=== PATIENT | female | born 1960 | race Caucasian/White ===

== ENCOUNTER 2018-12-24 15:01 | Outpatient (REF) | payer OTHER, SELFPAY ==
--- NOTE | 2018-12-24 14:40 | PAPFT_PTH ---
PATIENT: Rody Kebede LOC: [facility] U#:[id number] AGE/SX: 58/F ROOM: RE12/24/[address]: Delvis Galindo DO : 1960 BED: DIS: 12/24/2018 SPEC #: [id number] RECD: 12/24/18 18:07 STATUS: JOSE MARIA REDwayne #: [id number] JALEESA: 12/24/18 14:[address]: Delvis Galindo DEPT: [facility] Cytology RECD BY: Sindhu Brown Tissues: 1 - CX/ENDOCX FOR PAP SMEARS Procedures: PAP THIN PREP/UVM Screening HPV DNA PROBE Comments: [id number]
== END 2018-12-24 15:21 ==
LOC: LBN 15:01
PROVIDERS: PCP Emergency Medicine; Visit Provider Emergency Medicine
DX: Z12.4 Encounter for screening for malignant neoplasm of cervix (principal); Z11.51 Encounter for screening for human papillomavirus (HPV)
CPT/HCPCS: 88142; 87624

== ENCOUNTER 2018-12-24 15:11 | Outpatient (CLI) | payer OTHER, SELFPAY ==
[2018-12-24 18:00] LABS: Cholesterol 226 mg/dL (50-200); HDL Cholesterol 103 mg/dL (40-60); LDL CHOLESTEROL 104 mg/dL (<100); Triglyceride 71 mg/dL (30-150)
== END 2018-12-24 15:31 ==
PROVIDERS: PCP Emergency Medicine; Visit Provider Emergency Medicine
DX: Z00.00 Encounter for general adult medical examination without abnormal findings (principal); Z13.220 Encounter for screening for lipoid disorders
CPT/HCPCS: 36415; 80061; 83721

== ENCOUNTER 2020-03-15 09:41 | Outpatient (CLI) | payer OTHER, SELFPAY ==
[2020-03-17 18:13] LABS: SARS-CoV-2 RNA Undetected (Undetected); SARS-CoV-2 Specimen Source Nasopharynx
== END 2020-03-15 10:01 ==
PROVIDERS: PCP Emergency Medicine; Visit Provider Emergency Medicine
DX: Z20.828 Contact with and (suspected) exposure to other viral communicable diseases (principal)
CPT/HCPCS: U0003

== ENCOUNTER 2020-12-28 02:20 | Outpatient (CLI) | payer OTHER, SELFPAY ==
--- NOTE | 2020-12-28 08:25 | DI.MAMMO_ITS ---
Exam(s) MAMMO SCREENING EXAM: MAMMO SCREENING CLINICAL HISTORY: screening,Z12.39. TECHNIQUE: Bilateral full field digital CC and MLO mammographic images were obtained with 3D tomosyn thesis and utilizing computer aided detection (CAD). COMPARISON: Available for comparison. 2016 and 2018 from [facility] FINDINGS: Masses/Architectural Distortion: None seen. Microcalcifications: No suspicious pleomorphic-type are seen. Skin Thickening/Nipple Retraction: None. Biopsy marker clip in the posterior upper outer quadrant of the left breast. IMPRESSION: 1. No significant interval change with no specific features of malignancy noted. 2. Unless there is more urgent need, annual screening mammography is recommended, as per [place] [employer] guidelines. BI-RADS Category 1-negative Breast Density - Category D - extremely dense Breast Density Category D: The mammogram demonstrates the patient's breast tissue is dense. Dense maría elena ast tissue is very common and is not abnormal but dense breast tissue can make it harder to find canc er on a mammogram. Also, dense breast tissue may increase their breast cancer risk. This information about the result of the mammogram report was provided to the patient to raise their awareness. Use th is report when you speak with the patient about their risks for breast cancer, which includes their f amily history. At that time, you may recommend for more screening tests (Ultrasound or MRI) as they m ight be useful based on their risk. A negative radiographic report should not delay biopsy if a dominant or clinically suspicious mass is present. Up to ten percent of cancers are not identified on mammography. A negative report may reinforce clinical impression. Adenosis and dense breasts may obscure an underlying neoplasm. False positive reports average 6 to 10%.
== END 2020-12-28 02:40 ==
PROVIDERS: PCP Emergency Medicine; Visit Provider Emergency Medicine
DX: Z12.31 Encounter for screening mammogram for malignant neoplasm of breast (principal)
CPT/HCPCS: 77063; 77067

== ENCOUNTER 2021-01-27 16:40 | Outpatient (REF) | payer OTHER, SELFPAY ==
[2021-01-27 16:53] LABS: Source Nasal/Nares
[2021-01-27 20:56] LABS: COVID-19 PCR Negative (Negative)
== END 2021-01-27 16:41 | disposition home or self-care (01) ==
LOC: LBN 16:40
PROVIDERS: PCP Emergency Medicine; Visit Provider Surgery
DX: Z20.822 Contact with and (suspected) exposure to COVID-19 (principal); Z01.818 Encounter for other preprocedural examination
CPT/HCPCS: 87635

== ENCOUNTER 2021-01-28 09:44 | Day surgery (SDC) | payer OTHER, SELFPAY ==
[2021-01-28] VITALS (8 sets, daily range): BP systolic 93–130; BP diastolic 45–81; PULSE 46–58; RESP 12–16; TEMP 35.9–36.6; O2SAT 100
--- NOTE | 2021-01-28 09:21 | W.ANESPRE ---
General Info Date of Service Date Performed: 01/28/21 Height: 5 ft 7 in Weight: 58.06 kg Body Mass Index (BMI): 20.0 Surgical Procedure: Operation Date: 01/28/21 11:10 Proposed Procedures Side Surgeon p Herniorrhaphy Inguinal Right Cathy Kan, Meds Allergies and Home Medications Allergies Allergy/AdvReac Type Severity Reaction Status Date / Time No Known Allergies Allergy Verified 01/28/21 10:07 Home Medication Medication Instructions Recorded calcium carbonate 600 mg PO DAILY 12/01/16 ergocalciferol (vitamin D2) 400 units PO DAILY tab-cap 12/01/16 betamethasone, augmented 2 gm TOPICAL DAILY PRN #1 tube 01/24/18 conjugated estrogens 0.625 mg/gram 1 applic VG twice weekly #30 gm 02/18/19 vaginal cream lactobacillus combination no.9 4 4,000 mmu cells PO DAILY 01/27/21 billion cell capsule magnesium 420 mg PO DAILY PRN 01/28/21 Current Visit Medications: Current Medications Generic Name Dose Route Start Last Admin Trade Name Maya PRN Reason Stop Dose Admin Ringer's Solution 1,000 mls @ 80 mls/hr 01/28/21 06:00 IV 02/27/21 23:59 INFUSION ASIA Cefazolin Sodium/Dextrose 2 gm in 50 mls @ 100 mls/hr 01/28/21 06:00 Ancef Duplex IVPB 02/27/21 23:59 PREOP ASIA IV Miscellaneous Supplies 1 each 01/28/21 06:00 Iv Access IV 02/27/21 23:59 DIRECTED ASIA Sodium Chloride 0 ml 01/28/21 06:00 Normal Saline Flush 10 Ml Syr IV 02/27/21 23:59 PRN PRN Sodium Chloride 0 ml 01/28/21 06:00 Normal Saline 10 Ml Vial IJ 02/27/21 23:59 DIRECTED PRN Sterile Water 0 ml 01/28/21 06:00 Water,Injection,Sterile 10 Ml Vial IJ 02/27/21 23:59 DIRECTED PRN PFSH Active Problems Active Problems: Problem Status Onset Code Encounter for screening laboratory testing for COVID-19 virus in asymptomatic patient Z20.822 Pain of right inguinal ring R10.31 Right inguinal hernia K40.90 Lichen sclerosus et atrophicus of the vulva N90.4 Rosacea L71.9 Toenail fungus 05/10/16 B35.1 Seborrheic keratosis L82.1 Osteopenia determined by x-ray 05/25/17 M85.80 Functional murmur R01.0 Folliculitis L73.9 External hemorrhoids K64.4 Dense breast R92.2 Breast calcification seen on mammogram R92.1 Arthralgia of hip M25.559 Medical History Medical History Lichen sclerosus et atrophicus of the vulva Right inguinal hernia Surgical History Surgical History section 1993 Tobacco Smoking/Tobacco Use Status: Never Passive smoking exposure: No Alcohol Alcohol Intake: current Alcohol intake frequency: a few times a week Substance Use Substance use type: other Details: Per pt. states she takes a canabis tinture at bedtime for sleep Vital Signs and Lab Results Lab Results Blood Type / Crossmatch: No Data to Display Complete Blood Count: No Data to Display Complete Metabolic Panel: No Data to Display Liver Function Panel: No Data to Display Coagulation Panel: No Data to Display Cardiac Panel: No Data to Display Arterial Blood Gas: No Data to Display Venous Blood Gas: No Data to Display Pancreas Panel: No Data to Display Thyroid Panel: No Data to Display Infectious Disease: Coronavirus (COVID-19)(PCR) Negative (Negative) 01/27/21 16:00 01/27/21 Coronavirus 2019 Source Nasal/nares 01/27/21 16:00 01/27/21 Blood Cultures: No Data to Display Toxicology Panel: No Data to Display Anesthesia Assessment and Plan Anesthesia History Personal History: No History of Anesthesia Complications Family History: No Family History of Anesthesia Complications Exercise Tolerance Exercise Tolerance: Metabolic Equivalents>4 Pertinent Negatives Pertinent Negatives: No Symptoms of GERD, No Major Cardiovascular Symptoms or Complaints, No Major Pulmonary Symptoms or Complaints and No History of CVA/TIA Cardiac & Pulmonary Exam Cardiac Exam: Normal S1/S2 Heart Sounds Pulmonary Exam: Clear Bilateral Breath Sounds Airway Exam Known Difficult Airway: No Mallampati Class: 3 Mouth Opening: Normal (> 3cm) Thyromental Distance: Greater than 3 cm Neck Range of Motion: Full ROM Neck Circumference: Normal Teeth Condition: Normal Dentition ASA Classification ASA Score: ASA 2 Emergency Case?: No NPO Status NPO Status: NPO Clears >2 hours, Solids >8 hours Anesthesia Plan Resuscitation Status: Full Code Anesthesia Technique: General Anesthesia Airway Planned: LMA Monitors Used: Standard Monitors
[2021-01-28] MEDS: Lactated Ringers 1,000 ML 80 ML IV (10:34)
[2021-01-28] MEDS: ceFAZolin 2 GM/50 ML BAG IVPB (11:39)
--- NOTE | 2021-01-28 12:14 | W.ANESNERVE ---
Nerve Block Single Injection Procedure Date and Time Date Performed: 01/28/21 Procedure Start: 11:44 Location Where Procedure Performed Procedure Location: Operating Room Procedure Stop: 11:50 Reason Performed: Postoperative Analgesia Requesting Provider: Cathy Kan Timeout Performed Timeout Performed: Yes Monitoring Used ECG, Blood Pressure, SpO2 and ETCO2 Sterility Sterility: Hand Hygiene, Surgical Cap, Surgical Mask, Sterile Gloves, Eye Protection and Chlorhexidine Sedation Given During Procedure Sedation Given (Indicate Dose Given): No Sedation given Patient Mental Status Patient Mental Status: Performed under general anesthesia Nerve Block 1st Nerve Block: Laterality: Right Block Type: TAP Unilateral Needle / Catheter Used: 120mm SonoPlex II Local Anesthetic Bolus (Indicate Dose Given): Bupivacaine 0.5% Dose:: 10 cc and Exparel Dose:: 10 cc Additives (Indicate Dose Given): None Ultrasound: Sterile probe cover and gel used Ultrasound Image Saved?: Yes Nerve Stimulator: Not Used Paresthesia: None Procedure Tolerated: No Complications and Patient tolerated well Procedure Outcome: Successful Performed By: Minna Cantu Supervised By: Delroy Taylor
[2021-01-28] MEDS: Bupivacaine LIPOSOME/PF 133 MG/10 ML VIAL IJ (12:16)
--- NOTE | 2021-01-28 12:26 | W.PM.DSUDISC ---
Discharge Plan Disposition Patient Disposition: HOME Condition: Good Discharge Details Reason For Visit: (R) femoral hernia Attending Provider: Cathy Kan Primary Care Provider: Delvis Galindo Home Meds and New Rx's Prescriptions: New tramadol [Ultram] 50 mg tablet 50 mg PO Q6H PRN (Reason: pain) Qty: 10 RF: 0 Continued Adult 50 Plus Probiotic 4 billion cell capsule 4,000 mmu cells PO DAILY RF: 0 ergocalciferol (vitamin D2) 400 UNIT tablet 400 units PO DAILY RF: 0 calcium carbonate 600 MG tablet 600 mg PO DAILY RF: 0 betamethasone, augmented 50 GM cream 2 gm Topical DAILY PRNQty: 1 RF: 11 Premarin 0.625 mg/gram cream 1 applic VG twice weekly Qty: 30 RF: 11 magnesium 200 mg Tablet 420 mg PO DAILY PRNRF: 0 Discharge Instructions Additional Instructions: Dr. Kan HERNIA REPAIR ? POSTOPERATIVE INSTRUCTIONS Patients who have this type of surgery can usually be expected to return to work within two weeks and have minimal amounts of discomfort. ? ACTIVITY: The day of surgery should be spent resting. However, you can be up for short periods of time, I.E., going to the bathroom or kitchen. Avoid lifting or straining. On the day following surgery, you can be up and about as desired. ? LIFTING: Restrict your lifting to no more than five (5) pounds for the first week following surgery. For the second week after surgery, don?t lift more than ten pounds. We will decide when you are done with restrictions and when you can return to work, at your follow-up appointment. No sexual activity for two weeks. ? DIET: There are no dietary restrictions following surgery. However, you may want to start with small amounts of liquids to avoid nausea the day of surgery. ? INCISION CARE: You will notice purple skin glue closing the incision. Do not peel this off- it will wear off on its own. After 24 hours you may shower. The dressing may be replaced for comfort, but is not necessary. An ice bag may be applied to the incision for 72 hours following surgery. ? SIGNS OF INFECTION: It is not unusual to have some black and blue discoloration of the skin around the incision, but also scrotum and penis. It will slowly disappear. If you have any increased redness, drainage, fever (above 100 degrees), please contact your doctor for an examination. ? DISCOMFORT: You may expect to have some mild discomfort at the incision sight. If severe pain develops you should contact your doctor for further instructions. ? URINATION: Patients who have surgery occasionally have problems urinating. If you experience problems and are not able to urinate within 6 hours following your surgery, please call your doctor immediately or go to your nearest Emergency Room for evaluation. ? DRIVING: NO driving for three (3) days after surgery, or if you are still taking narcotic pain medication. ? MEDICATIONS: Alternate Tylenol 1000mg by mouth every 8 hours and Ibuprofen 600mg every 6 hours. Make sure you take ibuprofen with food and not on an empty stomach. Take the Tylenol and ibuprofen continuously for the first 72hrs- not just when you have pain. Use the tramadol for breakthrough pain. Use ICE! Twenty minutes on, and then off, continuously for the first 72hours. If you are taking narcotic pain medication, follow the instructions on the label and do not drive. Pain medications can make you very constipated. Make sure you are moving your bowels daily. If not, take Miralax, milk of magnesia or magnesium citrate. Anesthesia makes you very constipated. Take a dose of milk of magnesia the morning after surgery. ? REPORT: Unusual swelling, severe pain, unresolved nausea, signs of infection, or difficulty in urination to your surgeon. Follow up in clinic with Dr. Kan February 11 at 10:30am w/ [facility] office: [phone] Activity:: see above Remove Dressings/Wound Care:: 24 hours Shower/Bathe:: 24 hours Diet:: small light meals x 24 hrs Discharge Orders Discharge Orders: Discharge Order (Routine); Ordered 01/28/21 Ordered By: Cathy Kan DS: Diagnosis Discharge Diagnosis (1) Femoral hernia of right side: Status: Acute
--- NOTE | 2021-01-28 12:53 | W.ANESPOSTOP ---
Postoperative Evaluation Date, Time and Location Date Performed: 01/28/21 Time Performed: 12:54 Patient Location: PACU Vital Signs Most Recent Imported Vital Signs: Most Recent Vital Signs Temp Pulse Resp BP Pulse Ox 36.6 C 49 L 14 101/60 100 01/28/21 12:48 01/28/21 12:48 01/28/21 12:48 01/28/21 12:48 01/28/21 12:48 Pain Score Most Recent Pain Score: Most Recent Pain Score Pain Level 0 01/28/21 12:48 Assessment Mental Status: Arousable with meaningful communication Airway and Respiratory Function: Patent airway with normal (patient baseline) respiratory exam Cardiovascular Function: Hemodynamically Stable Hydration Status: Adequately Hydrated Nausea & Vomiting: No Nausea or Vomiting Pain: Pt. Denies Any Pain Peripheral Nerve Block: Regional nerve block not resolved at time of post operative discharge
--- NOTE | 2021-01-31 11:56 | ROE_ITS ---
Date of service: 01/28/21 Time of Service: 12:00 Operative Note Operative Note DATE OF PROCEDURE: 01/28/21 PRE-OP DIAGNOSIS: right femoral hernia POST-OP DIAGNOSIS: same PROCEDURE: open right femoral hernia repair w/ mesh SURGEON: Cathy Gaines SPECIAL EDUCATION PRESCHOOL TEACHER: Nas Conn ANESTHESIA TYPE: General:No Airway and Primary Nerve Block Refer to Anesthesia Record ESTIMATED BLOOD LOSS: 5 PATHOLOGY: none sent Patient was transported to: PACU Patient's condition: stable Procedure Description: INDICATIONS: The pt is here today for surgery regarding symptomatic right femoral hernia that has failed outpatient conservative medical management, and she is here today for repair. Informed consent was obtained, explaining risks and benefits of the procedure including but not limited to: bleeding, infection, pneumonia, blood clots, chronic pain, chronic numbness, recurrence of hernia, reaction to Mesh necessitating removal, and other unforetold complications, and complications of anesthesia-which were addressed by the RAKING MACHINE OPERATOR. The patient is marked in preOp prior to the procedure DESCRIPTION OF PROCEDURE: The pt is then brought to the operative room suite. Anesthesia was administered per the Department of Anesthesia. The patient was prepped and draped in the usual sterile fashion using ChloraPrep scrub solution. Pause for the cause was done. SHe did receive preop IV antibiotics, and 30 mL of .25% Marcaine w/ epinephrine was used for local anesthetization. A #12 blade was used to make a two-incch incision infra-inguinaly. Electrocautery was used to provide hemostasis and dissect down the hernia sac. The hernia sac is grasped with an Allis and elevated and dissected off the surrounding tissue. There is a small lipoma-this is excised using electrocautery. Electro-cautery is used to provide hemostasis. High ligation of the sac is performed. Is excised and tied off with a 2-0 Vicryl tie. And then return to the femoral triangle. Standard repairs and carried out in a traditional [place] fashion. The femoral triangle is reapproximated using 2-0 Vicryl. The patch was then used as an onlay and oversewn using 2-0 Vicryl. The wound was copiously irrigated. There was no bleeding noted. All structures are returned to normal anatomical position. Deep tissue was approximated with 3-0 Vicryl and skin was approximated with 4-0 Monocryl in a running subcuticular fashion. Skin glue sterile dressings are applied. The patient tolerated the procedure without complications to recovery in stable condition. CATHY GAINES, DO
== END 2021-01-28 14:53 | disposition home or self-care (01) ==
PROVIDERS: PCP Emergency Medicine; Visit Provider Surgery
PROC: (CPT 49550; principal; 2021-01-28 11:00)
DX: K41.90 Unilateral femoral hernia, without obstruction or gangrene, not specified as recurrent (principal); G89.18 Other acute postprocedural pain
CPT/HCPCS: 49550; 76942; C1781; J0690; J1100; J1885; J2001; J2405; J2704

== ENCOUNTER → 2022-07-28 00:48 | Outpatient (CLI) | payer OTHER, SELFPAY ==
--- NOTE | 2022-07-28 13:55 | DI.DEXA_ITS ---
Exam(s) XR DEXA BONE DENSITY W/WO BRIANNA EXAM: XR DEXA BONE DENSITY W/WO BRIANNA CLINICAL HISTORY: f/u 2017,OSTEOPENIA, SCREENING FOR OSTEOPOROSIS IN POSTMENOPAUSAL WOMAN TECHNIQUE: COMPARISON: Comparison examination is 11/28/2016. FINDINGS: Lateral Spine Image: Unremarkable. No compression deformities identified. Left hip: Total T-Score: -2.2. This compares to -1.8 on the prior examination. Total Z-Score: -1.3 T- and Z-scores: Findings are consistent with osteopenia. Lumbar Spine: Total T-Score: -2.9. This compares to -2.4 on the prior examination. Total Z-Score: -1.5 T- and Z-scores: Findings consistent with osteoporosis. IMPRESSION: Findings of osteoporosis.
== END ==
PROVIDERS: PCP Family Medicine; Visit Provider Family Medicine
DX: M85.88 Other specified disorders of bone density and structure, other site (principal); Z78.0 Asymptomatic menopausal state; Z13.820 Encounter for screening for osteoporosis; M81.0 Age-related osteoporosis without current pathological fracture
CPT/HCPCS: 77080

== ENCOUNTER 2022-08-04 01:09 | Outpatient (CLI) | payer OTHER, SELFPAY ==
[2022-08-04 12:01] LABS: TSH (W/Ref FT4) 2.51 uIU/mL (0.36-3.74)
[2022-08-04 12:31] LABS: Vitamin D 25 Total 34.1 ng/mL (30-100)
[2022-08-04 21:40] LABS: Parathyroid Hormone,Intact 26 pg/mL (19-88)
[2022-08-05 08:51] LABS: Calcium (Random Urine) 8.1 mg/dL (See Note)
[2022-08-05 13:33] LABS: HIV-1/2 Ag & Ab Screen Negative (Negative)
[2022-08-07 10:13] LABS: Hepatitis C Ab w Rflx HCV PCR Negative (Negative)
== END 2022-08-04 01:10 | disposition home or self-care (01) ==
LOC: LBO 01:09
PROVIDERS: PCP Family Medicine; Visit Provider Family Medicine
DX: Z00.00 Encounter for general adult medical examination without abnormal findings (principal); M81.0 Age-related osteoporosis without current pathological fracture; Z13.29 Encounter for screening for other suspected endocrine disorder; Z11.4 Encounter for screening for human immunodeficiency virus [HIV]; Z11.59 Encounter for screening for other viral diseases
CPT/HCPCS: 36415; 82306; 86803; 87389; 82340; 83970; 84443

== ENCOUNTER → 2023-05-08 02:59 | Outpatient (CLI) | payer OTHER, SELFPAY ==
--- NOTE | 2023-05-08 06:45 | DI.MAMMO_ITS ---
Exam(s) MAMMO SCREENING EXAM: MAMMO SCREENING CLINICAL HISTORY: screening,z12.39 TECHNIQUE: Bilateral full field digital CC and MLO mammographic images were obtained with 3D tomosyn thesis and utilizing computer aided detection (CAD). COMPARISON: Available for comparison. FINDINGS: Masses/Architectural Distortion: None seen. Microcalcifications: No suspicious pleomorphic-type are seen. Skin Thickening/Nipple Retraction: None. IMPRESSION: 1. No significant interval change with no specific features of malignancy noted. 2. Unless there is more urgent need, screening mammography is recommended, as per [place] [employer] guidelines. BI-RADS Category 1 - Negative Breast Density - Category D - Extremely dense Breast density category C or D implies that the patient has dense breast tissue. Dense breast tissue is very common and is not abnormal but dense breast tissue can make it harder to find cancer on a ma mmogram. Also, dense breast tissue may increase their breast cancer risk. This information about the result of the mammogram report was provided to the patient to raise their awareness. Use this report when you speak with the patient about their risks for breast cancer, which includes their family hist ory. At that time, you may recommend for more screening tests (Ultrasound or MRI) as they might be us eful based on their risk. A negative radiographic report should not delay biopsy if a dominant or clinically suspicious mass is present. Up to ten percent of cancers are not identified on mammography. A negative report may reinforce clinical impression. Adenosis and dense breasts may obscure an underlying neoplasm. False positive reports average 6 to 10%. Patient will receive a letter notifying them of these results.
== END ==
PROVIDERS: PCP Family Medicine; Visit Provider Family Medicine
DX: Z12.31 Encounter for screening mammogram for malignant neoplasm of breast (principal)
CPT/HCPCS: 77063; 77067

== ENCOUNTER 2023-05-08 03:35 | Outpatient (CLI) | payer OTHER, SELFPAY ==
[2023-05-08 09:27] LABS: Vitamin D 25 Total 50.5 ng/mL (30-100)
== END 2023-05-08 03:36 | disposition home or self-care (01) ==
LOC: LBO 03:35
PROVIDERS: PCP Family Medicine; Visit Provider Family Medicine
DX: M81.0 Age-related osteoporosis without current pathological fracture (principal)
CPT/HCPCS: 36415; 82306

== ENCOUNTER 2024-04-18 10:16 | Outpatient (REF) | payer OTHER, SELFPAY ==
--- NOTE | 2024-04-18 09:21 | PAPFT_PTH ---
PATIENT: Rody Kebede LOC: [facility] U#:[id number] AGE/SX: 63/F ROOM: RE04/18/[address]: Ro Huang : 1960 BED: DIS: 04/18/2024 SPEC #: [id number] RECD: 04/18/24 13:26 STATUS: JOSE MARIA REDwayne #: [id number] JALEESA: 04/18/24 09:[address]: Ro Huang DEPT: [facility] Cytology RECD BY: Sindhu Brown Tissues: 1 - CX/ENDOCX FOR PAP SMEARS Procedures: PAP THIN PREP/UVM Screening HPV DNA PROBE Comments: [id number] (HPV 16 & 18/45)
== END 2024-04-18 10:17 | disposition home or self-care (01) ==
LOC: LBN 10:16
PROVIDERS: PCP Family Medicine; Visit Provider Family Medicine
DX: M81.0 Age-related osteoporosis without current pathological fracture (principal); Z00.00 Encounter for general adult medical examination without abnormal findings; N90.4 Leukoplakia of vulva
CPT/HCPCS: 88142; 87624

== ENCOUNTER 2024-07-31 02:51 | Outpatient (CLI) | payer OTHER, SELFPAY ==
--- NOTE | 2024-07-31 13:45 | DI.DEXA_ITS ---
Exam(s) XR DEXA BONE DENSITY W/WO BRIANNA EXAM: XR DEXA BONE DENSITY W/WO BRIANNA CLINICAL HISTORY: f/u osteoporosis, M81.0 TECHNIQUE: HoloCAD [employer] C densitometer analysis of left hip, lumbar spine and left forearm. Lat eral survey image of the thoracic and lumbar spine. COMPARISON: DX DEXA BONE DENSITY WITH BRIANNA from 11/28/2016 CR XR DEXA BONE DENSITY W/WO BRIANNA from 07/28/2022 FINDINGS: Lateral view of the thoracic and lumbar spine shows no evidence of compression fractures. Bone mineral density measurements of the lumbar spine correspond to a total T-score of -3.0, in the osteoporotic range. This is not significantly changed from 2021. This represents a 9.6 percent decr ease from 2017. Bone mineral density measurements of the left hip correspond to a total T-score of -2.0. This is no t significantly changed from 2021 represents a 4.0 percent decrease from 2017. the femoral neck T-sco re is -2.5, at the borderline of the osteoporotic range. Theleft forearm bone mineral density measurements correspond to a T-score of the distal 3rd of -2.0, in the osteopenic range. This is not significantly changed from 2021 presents 9.4 percent decrease from 2016. IMPRESSION: Osteoporosis of the spine and hip. Osteopenia of the forearm.
== END 2024-07-31 03:11 ==
LOC: DI 02:51
PROVIDERS: PCP Family Medicine; Visit Provider Family Medicine
DX: M81.0 Age-related osteoporosis without current pathological fracture (principal)
CPT/HCPCS: 77080

== ENCOUNTER 2024-07-31 03:16 | Outpatient (CLI) | payer OTHER, SELFPAY ==
[2024-07-31 14:28] LABS: Calculated LDL 109 mg/dL (<100); Cholesterol 243 mg/dL (<200); HDL Cholesterol 115 mg/dL (40-60); Triglyceride 97 mg/dL (<150)
== END 2024-07-31 03:17 | disposition home or self-care (01) ==
LOC: LBO 03:16
PROVIDERS: PCP Family Medicine; Visit Provider Family Medicine
DX: Z13.6 Encounter for screening for cardiovascular disorders (principal); M81.0 Age-related osteoporosis without current pathological fracture
CPT/HCPCS: 36415; 80061

== ENCOUNTER 2025-05-08 02:12 | Outpatient (CLI) | payer OTHER, SELFPAY ==
--- NOTE | 2025-05-08 15:45 | DI.MAMMO_ITS ---
Exam(s) MAMMO SCREENING EXAM: MAMMO SCREENING CLINICAL HISTORY: screening,z12.39 TECHNIQUE: Mammograms were interpreted according to the usual protocol including computer analysis with CAD system, tomosynthesis and C-view imaging. COMPARISON: 2015 through 2022 FINDINGS: The breasts are composed of heterogeneously dense fibroglandular densities, Breast Density category C. No suspicious masses or suspicious microcalcifications are seen. Biopsy marker clip is again noted in the upper outer quadrant of the left breast. No skin thickening or abnormal axillary lymph nodes are seen. There has been no significant change from prior exams. IMPRESSION: BI-RADS Category 1, Negative mammogram. Yearly screening mammography is recommended. Breast Density: Category C - The breasts are heterogeneously dense, which may obscure small masses. Breast density Category C or D implies that the patient has dense breast tissue. Dense breast tissue can make it harder to find cancer on a mammogram. Dense breast tissue is also associated with an increased risk of breast cancer. This information about the result of the mammogram report was provided to the patient to raise their awareness. Use this report when you speak with the patient about their risks for breast cancer, which includes their family history. At that time, you may recommend additional screening tests (Ultrasound or MRI) as these tests may add significant information. A negative radiographic report should not delay biopsy if a dominant or clinically suspicious mass is present. Up to ten percent of cancers are not identified on mammography. A negative report may reinforce clinical impression. Adenosis and dense breasts may obscure an underlying neoplasm. False positive reports average 6 to 10%.
== END 2025-05-08 02:32 ==
LOC: DI 02:12
PROVIDERS: PCP Family Medicine; Visit Provider Family Medicine
DX: Z12.31 Encounter for screening mammogram for malignant neoplasm of breast (principal); R92.323 Mammographic fibroglandular density, bilateral breasts; R92.333 Mammographic heterogeneous density, bilateral breasts
CPT/HCPCS: 77063; 77067